=== PATIENT | male | born 1960 | race Caucasian/White ===

== ENCOUNTER → 2023-12-31 11:30 | Outpatient (BNVA) | payer OTHER, MEDICAID, SELFPAY | PROVIDERS: PCP Family Medicine; Visit Provider Nurse Practitioner Family | DX: F10.10 Alcohol abuse, uncomplicated (principal); F19.11 Other psychoactive substance abuse, in remission | CPT/HCPCS: 80053; 80307; 85025 ==

== ENCOUNTER → 2024-01-01 13:47 | Outpatient (BNVA) | payer OTHER, MEDICAID, SELFPAY | PROVIDERS: PCP Family Medicine; Visit Provider Nurse Practitioner Family | DX: F10.10 Alcohol abuse, uncomplicated (principal); F19.11 Other psychoactive substance abuse, in remission | CPT/HCPCS: 80307 ==